=== PATIENT | male | born 1995 | race Caucasian/White ===

== ENCOUNTER 2020-12-09 12:19 | Emergency (ER) | payer OTHER, BC, SELFPAY ==
[2020-12-09 12:50] VITALS: BP 146/78; PULSE 80; RESP 16; TEMP 37.2; O2SAT 99
--- NOTE | 2020-12-09 13:27 | ED.URI ---
HPI - URI/Sore Throat General Chief Complaint: Upper Respiratory Infection Stated Complaint: TROUBLE BREATHING/HEADACHE/FEVER Time Seen by Provider: 12/09/20 13:20 Source: patient, RN notes reviewed and old records reviewed Mode of arrival: ambulatory Limitations: no limitations History of Present Illness HPI Narrative: 25 year old male presents to [facility] with complaints of 2-3 day duration of sore throat,nasal congestion and drainage, with headache, fatigue, and body aches. Patient states that he has has been working excessive hours at his job with co worker here today with similar symptoms Patient reports that he did have COVID 6 months ago and did recover with no residual effects. He states that he has not taken any OTC medications for his symptoms. MD elicited complaint: sore throat, nasal congestion and other (headache fatigue) Pertinent past history: asthma and other (vapes) Onset (ago): day(s) (2-3) Consistency: constant Severity: moderate Pain scale (0-10): 6 Description of mucous: clear Able to tolerate fluids by mouth: Yes Relieving factors: nothing Context: other(s) with similar symptoms Associated symptoms: fever (low grade around a 100F patint states), headache, rhinorrhea, nasal congestion and sore throat Treatments prior to arrival: none Related Data Home Medications Medication Instructions Recorded Confirmed bupropion HCl mg PO 12/09/20 citalopram mg 12/09/20 Allergies Allergy/AdvReac Type Severity Reaction Status Date / Time Latex, Natural Rubber Allergy Unknown Verified 12/09/20 13:30 Review of Systems Review of Systems: Narrative: CONSTITUTIONAL: Denies fever, chills, or sweats. EYES: Denies visual changes, redness, or discharge. ENT: Denies rhinorrhea, congestion, sore throat, or otalgia. CARDIOVASCULAR: Denies chest pain, palpitations, or edema. RESPIRATORY: Denies cough or dyspnea. GASTROINTESTINAL: Denies abdominal pain, nausea, vomiting, or diarrhea. GENITOURINARY: Denies dysuria or hematuria. SKIN: Denies rash or itching. MUSCULOSKELETAL: Denies back pain, joint pain, body aches. NEUROLOGIC: Denies headache, numbness, or weakness. PSYCHIATRIC: Positive anxiety or depression. All systems reviewed & are unremarkable except as noted in HPI and below PMFSH Past Medical History Medical History (Updated 12/11/20 @ 13:51 by Lucila Spencer NP) Anxiety and depression Asthma Surgical History Surgical History (Updated 12/11/20 @ 13:41 by Lucila Spencer NP) No history of previous surgery Family History Family History (Updated 12/11/20 @ 13:43 by Lucila Spencer NP) Father Immunocompromised Grandparent Hypertension Other Cerebrovascular accident Diabetes mellitus Heart disease Social History Social History (Updated 12/11/20 @ 13:43 by Lucila Spencer NP) Smoking status: Current every day smoker Tobacco type: e-cigarettes/vaping Alcohol intake: former Alcohol use details: none for 7 months Substance use: current Substance use type: marijuana Living arrangements: with family Gender identity (if verbalized by the patient): Male Comments At time of signature, agree with nursing past medical, surgical, social and family history. There is no relevant family history pertinent to the presenting complaint Exam Narrative: Exam Narrative: GENERAL: Well-appearing, well-nourished, and in no acute distress. HEAD: Normocephalic, atraumatic. EYES: PERRLA and EOMI. ENT: Nares red with clear rhinorrhea no epistaxis. Mucous membranes moist.TM's normal with good light reflex, throat red with no exudate or lesions, no tonsil enlargement, post nasal drainage noted to back of throat. NECK: Supple.no lymphadenopathy CHEST: Clear to auscultation. No respiratory distress.non productive cough at times. SAO2 99% on room air HEART: Regular rate and rhythm. No murmur heard. Normal peripheral pulses. ABDOMEN: Soft, nontender, nondistended, normal active bowel sounds
--- NOTE | 2020-12-11 12:46 | PC.NURSE ---
patient was called and told he can return to work per [employer]INE[employer] Lucila
== END 2020-12-09 14:43 | disposition home or self-care (01) ==
PROVIDERS: Emergency Provider Registered Nurse
DX: J06.9 Acute upper respiratory infection, unspecified (principal); Z20.822 Contact with and (suspected) exposure to COVID-19; F17.200 Nicotine dependence, unspecified, uncomplicated; J45.909 Unspecified asthma, uncomplicated
CPT/HCPCS: 87081; 87426; 87804; 87880; 99213; C9803; G0463